=== PATIENT | male | born 1945 | race Hispanic/Latino ===

== ENCOUNTER 2018-07-08 10:09 | Outpatient (CLI) | payer MEDICARE, OTHER ==
--- NOTE | 2018-07-09 14:31 | Mammography Report ---
BONE DEXA:07/08/18 10:09:00 CLINICAL: 72-year-old male at risk for osteoporosis. No comparison. TECHNIQUE: Two site bone DEXA performed on an Hologic scanner. FINDINGS: The average BMD of the lumbar spine L1-L4 is 0.851g/cm squared with a T-score of -2.2 and a Z-score of -1.2. The average BMD of the right hip is 0.920g/cm squared with a T-score of -0.7 and a Z-score of +0.1. The right femoral neck BMD is 0.767g/cm squared with a T score of -1.2 and a Z score of +0.1. IMPRESSION: WHO classification: Osteopenia with increased fracture risk based on both spine and right femoral neck measurements. RECOMMENDATION: Clinical correlation and routine screening. DEFINITIONS: BMD = Bone Mineral Density T-score = BMD related to mean peak bone mass of young adult (mean expressed in Standard Deviation) Z-score = Age matched BMD expressed in SD World Health Organization (WHO) Diagnostic Criteria Normal T-score > -1 SD Osteopenia T-score between -1 and -2.4 SD Osteoporosis T-score -2.5 SD or below NOTE: BMD is not the only risk factor for fracture. One should also consider factors such as the patient's age, risk of falling, previous osteoporotic fracture, family history of osteoporotic fractures, current smoker, and low body weight. Z-scores are not calculated if >80 years of age.
== END 2018-07-08 10:10 | disposition home or self-care (01) ==
LOC: SPVWC 10:09
PROVIDERS: ATTEND Family Medicine
DX: Z13.820 Encounter for screening for osteoporosis (principal); M81.0 Age-related osteoporosis without current pathological fracture; M85.88 Other specified disorders of bone density and structure, other site; F17.210 Nicotine dependence, cigarettes, uncomplicated
CPT/HCPCS: 77080

== ENCOUNTER 2021-09-11 09:00 | Outpatient (CLI) | payer MEDICARE, OTHER ==
--- NOTE | 2021-09-12 09:16 | Mammography Report ---
DEXA BONE DENSITY SCAN INDICATION: OTH SPECIFIED DISORDERS OF BONE DENSITY/STRUCTURE MULTIPLE SITES. COMPARISON: 07/08/2018 LUMBAR SPINE (L1-L4): Bone mineral density (BMD) is 0.860 g/cm2. T-score is -2.1 (standard deviations of Young Adult mean). Z-score is -1.0 (standard deviations of Age Matched mean). LEFT FEMORAL NECK: Bone mineral density (BMD) is 0.736 g/cm2. T-score is -1.4 (standard deviations of Young Adult mean). Z-score is 0 (standard deviations of Age Matched mean). IMPRESSION: 1. WHO Classification: Osteopenia. Fracture Risk: Increased. 2. Bone density has improved 5.4% at the hip and decreased 0.4% at the spine when compared with the m ost recent exam. Signer Name: Gil Padron MD Signed: 09/12/2021 9:11 AM Workstation Name: [id number][id number]
== END 2021-09-11 09:01 | disposition home or self-care (01) ==
LOC: SPVWC 09:00
PROVIDERS: ATTEND Family Medicine
DX: M85.89 Other specified disorders of bone density and structure, multiple sites (principal)
CPT/HCPCS: 77080